=== PATIENT | male | born 2000 | race Two or more races ===

== ENCOUNTER 2021-10-09 19:25 | Inpatient (IN) ==
[2021-10-09] MEDS ORDERED: SODIUM CHLORIDE 0.9% 1000ML 1,000 ML IV ONE (19:39)
--- NOTE | 2021-10-09 19:43 | Emergency Department Note ---
Impression & Plan Suicide attempt by drug overdose, Depression ED Provider Note Name: BRITTNEE MESSINA Age: 21 Sex: M Arrives Via: Ambulance Informant: Patient, EMS ED Provider: Freddie Larose MD Chief Complaint: Overdose Impression: As Per Impressions above Medical Decision Makin-year-old male with a history of anxiety/depression, borderline personality disorder and ADD arrives for evaluation following a medication overdose. About an hour prior to arrival patient reportedly took 20 to 30 tablets of his Paxil. He also admits that he had taken some NyQuil as well. Patient is awake alert oriented he has no symptoms at this time. His EKG is unremarkable without a QRS or QTC elevation. His laboratory work-up reveals a detectable amount of Tylenol and given his history I did feel it was necessary to repeat this Tylenol at 4 hours from last ingestion. Repeat Tylenol at 4 hrs post ingestion is 50, which is within nomogram for clearance. He was monitored for multiple hours and in no distress and without issue. I did review the case with poison control who advised 6-hour observation prior to medical clearance. Vitals throughout are stable patient is in no distress. Prior Medical Record and Triage/Nursing Notes reviewed by Me Additional history obtained from chart Differentials:Mood disorder, infection, hypoglycemia, electrolyte abnormalities, cardiac sources, intracerebral event, toxicologic, trauma, neurologic, as well as other pathologies. Vital Signs: reviewed and remarkable for no significant abnormalities Interventions: Nss bolus 1 L IV Labs:Reviewed and remarkable for Tylenol 28 EKG:Per My Interpretation: Indication Overdose: NSR 100 bpm, qtc 430, QRS 88. No Ectopy. No Ischemia. No previous for comparison Cardiac/Tele Monitoring: Cardiac Monitoring: An Order was placed for continuous cardiac monitoring. The monitor shows a rate of 90 with a normal sinus rhythm. Consults:. Poison control advised 6-hour monitoring Plan: Disposition: Signed out to Dr. Gant pending placement Condition: Good History of Present Illness: 21-year-old male arrives for evaluation following a suicide attempt. Patient notes he has been feeling sad and depressed recently. He took 20 tablets of his 30 mg paroxetine roughly 1 hour prior to arrival (6:30 PM). Patient denies other ingestions. Denies other attempts to harm himself. He does have a history of depression and does not have previous mental health hospitalization. He denies any current complaints. He denies any chest pain, shortness of breath, palpitation, nausea, vomiting, headache, lightheadedness or other concerning signs or symptoms. He took no other medications this afternoon. He has no hallucinations. He denies any thoughts of harm to others. Denies any medical complaints at this time. ROS: See above HPI for pertinent positives & negatives. A total of 10 systems reviewed and were otherwise negative. Past Medical History:Anxiety/depression, ADD, Borderline Past Surgical History:None Family History:Denies family history Social History:[employer] student, daily vapor, no drug use Home Medications:Adderall, hydroxyzine, paroxetine Allergies:Amoxicillin/penicillins Vitals:Blood Pressure: 126/66, Pulse 91, RR 17, T 37.2C, O2 97% on RA Physical Exam: GENERAL: Patient is sad appearing and in minimal distress. EYES: No scleral icterus, unremarkable pupils. ENT: Mucous membranes moist, no nasal congestion. NECK: No masses appreciated, nomeningismus, trachea is midline. RESPIRATORY: No dyspnea. Clear to auscultation and equal bilaterally. No wheeze, no rhonchi. CARDIOVASCULAR: Regular rate and rhythm.No murmurs, rubs, gallops appreciated. GASTROINTESTINAL: Abdomen soft, non-tender, no peritonitis.Bowel sounds positive.No masses appreciated. BACK: No midline tenderness, no CVA tenderness EXTREMITIES: Normal motion all extremities, no cyanosis, no edema. NEUROLOGIC: Alert and oriented, no acute motor or sensory deficits, no focal weakness, cranial nerves grossly intact. SKIN: No rash, no jaundice, no diaphoresis. PSYCH: sad/depressed, admits suicidal ideation with attempt GCS: 15 ED Course: Times/Reassessments: Patient stable no distress stating he is feeling well. Repeat Tylenol unremarkable. Observation note: Indication: Medicatio overdose monitoring Initial Evaluation: 7:30pm on 10/09/21 Observation was necessary in order to avoid hospitalization for medical clearance post ingestion. PMH, PSH, Family History, Social history as above. See Dr Gant's note for time of clearance. Freddie Larose MD Past Med/Surg History Social History Smoking Status: Never smoker Tobacco Type: E-cigarettes / Vaping Preferred Language: German Feels Safe at Home: Yes Allergies Allergies Allergy/AdvReac Type Severity Reaction Status Date / Time amoxicillin Allergy annaphylaxis, Verified 10/09/21 20:03 hives Penicillins Allergy Anaphylaxis Verified 10/09/21 20:03 Home Meds Home Medications Medication Instructions Recorded Confirmed paroxetine HCl 30 mg tablet 30 mg PO HS 02/02/21 10/09/21 dextroamphetamine-amphetamine 10 10 mg PO .AFTERNOON PRN 10/09/21 10/09/21 mg tablet innattention dextroamphetamine-amphetamine ER 30 mg PO DAILY 10/09/21 10/09/21 30 mg 24hr capsule,extend release paroxetine HCl 10 mg tablet 10 mg PO HS 10/09/21 10/09/21 Results & Data (ED) Vital Signs Vital Signs - 24 hr 10/09/21 19:45 10/09/21 20:21 10/09/21 20:32 Temperature 37.2 C Temperature Source Oral Pulse Rate 118 H Pulse Rate [Apical] 102 H 95 H Pulse Rate from SpO2 Sensor Respiratory Rate 16 20 18 Respiratory Effort / Characteristics Non-Labored Spontaneous Non-Labored Spontaneous Non-Labored Spontaneous Respiratory Depth Normal Normal Normal Blood Pressure 170/108 H Blood Pressure [Left Arm] 150/93 H 150/102 H Blood Pressure Mean 128 Blood Pressure Mean [Left Arm] 112 118 Pulse Oximetry 96 98 98 Oxygen Delivery Method Room Air Room Air Room Air Sepsis Recent Fever Within 48 Hours No Sepsis New/Unexplained Change in Mental Status N/A Sepsis Action Taken by Nursing No Action Required 10/09/21 20:38 10/09/21 21:00 10/09/21 21:30 Temperature Temperature Source Pulse Rate 97 H 102 H 92 H Pulse Rate [Apical] Pulse Rate from SpO2 Sensor 95 H 100 H 93 H Respiratory Rate 17 15 16 Respiratory Effort / Characteristics Respiratory Depth Blood Pressure 112/85 145/90 H Blood Pressure [Left Arm] Blood Pressure Mean 94 108 Blood Pressure Mean [Left Arm] Pulse Oximetry 98 100 98 Oxygen Delivery Method Sepsis Recent Fever Within 48 Hours Sepsis New/Unexplained Change in Mental Status Sepsis Action Taken by Nursing 10/09/21 22:00 10/09/21 22:30 10/09/21 23:00 Temperature Temperature Source Pulse Rate 91 H 103 H 87 Pulse Rate [Apical] Pulse Rate from SpO2 Sensor 91 H 104 H 87 Respiratory Rate 17 14 17 Respiratory Effort / Characteristics Respiratory Depth Blood Pressure 126/66 123/76 134/87 Blood Pressure [Left Arm] Blood Pressure Mean 86 91 102 Blood Pressure Mean [Left Arm] Pulse Oximetry 97 97 97 Oxygen Delivery Method Sepsis Recent Fever Within 48 Hours Sepsis New/Unexplained Change in Mental Status Sepsis Action Taken by Nursing Laboratory Data Result diagrams: 10/09/21 19:42 10/09/21 19:42 Lab Results 10/09/21 10/09/21 10/09/21 Range/Units 19:42 19:42 19:42 WBC 8.66 (4.8-10.8) K/ul RBC 6.01 (4.63-6.08) M/uL Hgb 15.8 (14.0-18.0) g/dl Hct 47.4 (40.1-51.0) % MCV 78.9 L (80.0-100.0) fL MCH 26.3 (25.0-34.0) pg MCHC 33.3 (32.0-36.0) g/dL RDW Std Deviation 36.4 (36.4-46.3) fL RDW Coeff of Cheikh 12.8 (11.5-14.5) % Plt Count 280 (130-400) K/uL MPV 9.0 L (9.4-12.4) fL Immature Gran % (Auto) 0.5 % Neut % (Auto) 70.4 % Lymph % (Auto) 21.0 % Callahan % (Auto) 7.5 % Eos % (Auto) 0.3 % Baso % (Auto) 0.3 % Neut # (Auto) 6.09 (1.4-6.5) K/uL Lymph # (Auto) 1.82 (1.2-3.4) K/uL Callahan # (Auto) 0.65 (0.24-0.82) K/uL Eos # (Auto) 0.03 (0-0.50) K/uL Baso # (Auto) 0.03 (0-0.2) K/uL Immature Gran # (Auto) 0.04 H (0.00-0.02) K/uL Sodium 135 L (136-145) mmol/L Potassium 3.7 (3.5-5.1) mmol/L Chloride 101 (98-107) mmol/L Carbon Dioxide 24 (21-32) mmol/L Anion Gap 10 (3-11) BUN 15 (6-23) mg/dl Creatinine 1.02 (0.6-1.4) mg/dl Est Cr Clr Drug Dosing 102.7 ml/min Est GFR ( Amer) 121.2 ml/min Est GFR (Non-Af Amer) 104.6 ml/min BUN/Creatinine Ratio 14.7 (10-20) Glucose 133 H (70-99(Fasting)) mg/dl Calcium 9.5 (8.5-10.1) mg/dl Total Bilirubin 0.3 (0.2-1.0) mg/dl AST 19 (13-39) U/L ALT 16 (7-52) U/L Alkaline Phosphatase 66 (34-104) U/L Total Protein 8.0 (6.0-8.3) gm/dl Albumin 4.9 (3.4-5.0) gm/dl Globulin 3.1 (2.5-4.0) gm/dl Albumin/Globulin Ratio 1.6 (0.9-2) TSH 3.247 (0.300-4.500) uIu/ml Urine Color Urine Appearance Urine pH Ur Specific Terry Urine Protein Urine Glucose (UA) Urine Ketones Urine Blood Urine Nitrite Urine Bilirubin Urine Urobilinogen Ur Leukocyte Esterase Urine WBC (Auto) Urine RBC (Auto) U Hyaline Cast (Auto) U Epithel Cells (Auto) Urine Bacteria (Auto) Ur Renal Epithelial Cell Urine Crystals Calcium Oxalate Crystal Uric Acid Crystals Triple Phos Crystals Other Crystals Amorphous Sediment Granular Casts Waxy Casts RBC Casts WBC Casts Other Casts Urine Mucus Urine Other Urine Trichomonas Urine Yeast Urine Sperm Ur Oval Fat Bodies Salicylates (3.0-30) mg/dl Urine Opiates Screen (Neg) Ur Methadone, Qual (Neg) Acetaminophen (10-30) ug/ml Urine Barbiturates (Neg) Ur Phencyclidine (PCP) (Neg) U Amphetamin/Meth Scrn (Neg) MDMA (Ecstasy) Screen (Neg) U Benzodiazepines Scrn (Neg) Ur Cocaine Metabolite (Neg) U Marijuana (THC) Screen (Neg) Ethyl Alcohol mg/dL (<10.0) mg/dl SARS-CoV-2, RNA, NAAT (NEGATIVE) 10/09/21 10/09/21 10/09/21 Range/Units 19:42 19:42 19:42 WBC (4.8-10.8) K/ul RBC (4.63-6.08) M/uL Hgb (14.0-18.0) g/dl Hct (40.1-51.0) % MCV (80.0-100.0) fL MCH (25.0-34.0) pg MCHC (32.0-36.0) g/dL RDW Std Deviation (36.4-46.3) fL RDW Coeff of Cheikh (11.5-14.5) % Plt Count (130-400) K/uL MPV (9.4-12.4) fL Immature Gran % (Auto) % Neut % (Auto) % Lymph % (Auto) % Callahan % (Auto) % Eos % (Auto) % Baso % (Auto) % Neut # (Auto) (1.4-6.5) K/uL Lymph # (Auto) (1.2-3.4) K/uL Callahan # (Auto) (0.24-0.82) K/uL Eos # (Auto) (0-0.50) K/uL Baso # (Auto) (0-0.2) K/uL Immature Gran # (Auto) (0.00-0.02) K/uL Sodium (136-145) mmol/L Potassium (3.5-5.1) mmol/L Chloride (98-107) mmol/L Carbon Dioxide (21-32) mmol/L Anion Gap (3-11) BUN (6-23) mg/dl Creatinine (0.6-1.4) mg/dl Est Cr Clr Drug Dosing ml/min Est GFR ( Amer) ml/min Est GFR (Non-Af Amer) ml/min BUN/Creatinine Ratio (10-20) Glucose (70-99(Fasting)) mg/dl Calcium (8.5-10.1) mg/dl Total Bilirubin (0.2-1.0) mg/dl AST (13-39) U/L ALT (7-52) U/L Alkaline Phosphatase (34-104) U/L Total Protein (6.0-8.3) gm/dl Albumin (3.4-5.0) gm/dl Globulin (2.5-4.0) gm/dl Albumin/Globulin Ratio (0.9-2) TSH (0.300-4.500) uIu/ml Urine Color Urine Appearance Urine pH Ur Specific Terry Urine Protein Urine Glucose (UA) Urine Ketones Urine Blood Urine Nitrite Urine Bilirubin Urine Urobilinogen Ur Leukocyte Esterase Urine WBC (Auto) Urine RBC (Auto) U Hyaline Cast (Auto) U Epithel Cells (Auto) Urine Bacteria (Auto) Ur Renal Epithelial Cell Urine Crystals Calcium Oxalate Crystal Uric Acid Crystals Triple Phos Crystals Other Crystals Amorphous Sediment Granular Casts Waxy Casts RBC Casts WBC Casts Other Casts Urine Mucus Urine Other Urine Trichomonas Urine Yeast Urine Sperm Ur Oval Fat Bodies Salicylates < 3.0 L (3.0-30) mg/dl Urine Opiates Screen (Neg) Ur Methadone, Qual (Neg) Acetaminophen 28 (10-30) ug/ml Urine Barbiturates (Neg) Ur Phencyclidine (PCP) (Neg) U Amphetamin/Meth Scrn (Neg) MDMA (Ecstasy) Screen (Neg) U Benzodiazepines Scrn (Neg) Ur Cocaine Metabolite (Neg) U Marijuana (THC) Screen (Neg) Ethyl Alcohol mg/dL < 10.0 (<10.0) mg/dl SARS-CoV-2, RNA, NAAT NEGATIVE (NEGATIVE) 10/09/21 10/09/21 10/09/21 Range/Units 22:08 Unknown Unknown WBC (4.8-10.8) K/ul RBC (4.63-6.08) M/uL Hgb (14.0-18.0) g/dl Hct (40.1-51.0) % MCV (80.0-100.0) fL MCH (25.0-34.0) pg MCHC (32.0-36.0) g/dL RDW Std Deviation (36.4-46.3) fL RDW Coeff of Cheikh (11.5-14.5) % Plt Count (130-400) K/uL MPV (9.4-12.4) fL Immature Gran % (Auto) % Neut % (Auto) % Lymph % (Auto) % Callahan % (Auto) % Eos % (Auto) % Baso % (Auto) % Neut # (Auto) (1.4-6.5) K/uL Lymph # (Auto) (1.2-3.4) K/uL Callahan # (Auto) (0.24-0.82) K/uL Eos # (Auto) (0-0.50) K/uL Baso # (Auto) (0-0.2) K/uL Immature Gran # (Auto) (0.00-0.02) K/uL Sodium (136-145) mmol/L Potassium (3.5-5.1) mmol/L Chloride (98-107) mmol/L Carbon Dioxide (21-32) mmol/L Anion Gap (3-11) BUN (6-23) mg/dl Creatinine (0.6-1.4) mg/dl Est Cr Clr Drug Dosing ml/min Est GFR ( Amer) ml/min Est GFR (Non-Af Amer) ml/min BUN/Creatinine Ratio (10-20) Glucose (70-99(Fasting)) mg/dl Calcium (8.5-10.1) mg/dl Total Bilirubin (0.2-1.0) mg/dl AST (13-39) U/L ALT (7-52) U/L Alkaline Phosphatase (34-104) U/L Total Protein (6.0-8.3) gm/dl Albumin (3.4-5.0) gm/dl Globulin (2.5-4.0) gm/dl Albumin/Globulin Ratio (0.9-2) TSH (0.300-4.500) uIu/ml Urine Color Cancelled Urine Appearance Cancelled Urine pH Cancelled Ur Specific Terry Cancelled Urine Protein Cancelled Urine Glucose (UA) Cancelled Urine Ketones Cancelled Urine Blood Cancelled Urine Nitrite Cancelled Urine Bilirubin Cancelled Urine Urobilinogen Cancelled Ur Leukocyte Esterase Cancelled Urine WBC (Auto) Cancelled Urine RBC (Auto) Cancelled U Hyaline Cast (Auto) Cancelled U Epithel Cells (Auto) Cancelled Urine Bacteria (Auto) Cancelled Ur Renal Epithelial Cell Cancelled Urine Crystals Cancelled Calcium Oxalate Crystal Cancelled Uric Acid Crystals Cancelled Triple Phos Crystals Cancelled Other Crystals Cancelled Amorphous Sediment Cancelled Granular Casts Cancelled Waxy Casts Cancelled RBC Casts Cancelled WBC Casts Cancelled Other Casts Cancelled Urine Mucus Cancelled Urine Other Cancelled Urine Trichomonas Cancelled Urine Yeast Cancelled Urine Sperm Cancelled Ur Oval Fat Bodies Cancelled Salicylates (3.0-30) mg/dl Urine Opiates Screen Neg (Neg) Ur Methadone, Qual Neg (Neg) Acetaminophen 51 H (10-30) ug/ml Urine Barbiturates Neg (Neg) Ur Phencyclidine (PCP) Neg (Neg) U Amphetamin/Meth Scrn Pos H (Neg) MDMA (Ecstasy) Screen Neg (Neg) U Benzodiazepines Scrn Neg (Neg) Ur Cocaine Metabolite Neg (Neg) U Marijuana (THC) Screen Pos H (Neg) Ethyl Alcohol mg/dL (<10.0) mg/dl SARS-CoV-2, RNA, NAAT (NEGATIVE) 10/09/21 Range/Units Unknown WBC (4.8-10.8) K/ul RBC (4.63-6.08) M/uL Hgb (14.0-18.0) g/dl Hct (40.1-51.0) % MCV (80.0-100.0) fL MCH (25.0-34.0) pg MCHC (32.0-36.0) g/dL RDW Std Deviation (36.4-46.3) fL RDW Coeff of Cheikh (11.5-14.5) % Plt Count (130-400) K/uL MPV (9.4-12.4) fL Immature Gran % (Auto) % Neut % (Auto) % Lymph % (Auto) % Callahan % (Auto) % Eos % (Auto) % Baso % (Auto) % Neut # (Auto) (1.4-6.5) K/uL Lymph # (Auto) (1.2-3.4) K/uL Callahan # (Auto) (0.24-0.82) K/uL Eos # (Auto) (0-0.50) K/uL Baso # (Auto) (0-0.2) K/uL Immature Gran # (Auto) (0.00-0.02) K/uL Sodium (136-145) mmol/L Potassium (3.5-5.1) mmol/L Chloride (98-107) mmol/L Carbon Dioxide (21-32) mmol/L Anion Gap (3-11) BUN (6-23) mg/dl Creatinine (0.6-1.4) mg/dl Est Cr Clr Drug Dosing ml/min Est GFR ( Amer) ml/min Est GFR (Non-Af Amer) ml/min BUN/Creatinine Ratio (10-20) Glucose (70-99(Fasting)) mg/dl Calcium (8.5-10.1) mg/dl Total Bilirubin (0.2-1.0) mg/dl AST (13-39) U/L ALT (7-52) U/L Alkaline Phosphatase (34-104) U/L Total Protein (6.0-8.3) gm/dl Albumin (3.4-5.0) gm/dl Globulin (2.5-4.0) gm/dl Albumin/Globulin Ratio (0.9-2) TSH (0.300-4.500) uIu/ml Urine Color Yellow Urine Appearance Clear Urine pH 6.5 Ur Specific Terry 1.032 H Urine Protein Negative Urine Glucose (UA) Negative Urine Ketones Trace H Urine Blood Negative Urine Nitrite Negative Urine Bilirubin Negative Urine Urobilinogen Negative Ur Leukocyte Esterase Negative Urine WBC (Auto) Urine RBC (Auto) U Hyaline Cast (Auto) U Epithel Cells (Auto) Urine Bacteria (Auto) Ur Renal Epithelial Cell Urine Crystals Calcium Oxalate Crystal Uric Acid Crystals Triple Phos Crystals Other Crystals Amorphous Sediment Granular Casts Waxy Casts RBC Casts WBC Casts Other Casts Urine Mucus Urine Other Urine Trichomonas Urine Yeast Urine Sperm Ur Oval Fat Bodies Salicylates (3.0-30) mg/dl Urine Opiates Screen (Neg) Ur Methadone, Qual (Neg) Acetaminophen (10-30) ug/ml Urine Barbiturates (Neg) Ur Phencyclidine (PCP) (Neg) U Amphetamin/Meth Scrn (Neg) MDMA (Ecstasy) Screen (Neg) U Benzodiazepines Scrn (Neg) Ur Cocaine Metabolite (Neg) U Marijuana (THC) Screen (Neg) Ethyl Alcohol mg/dL (<10.0) mg/dl SARS-CoV-2, RNA, NAAT (NEGATIVE) Administered Medications Discontinued Medications Sodium Chloride (Nss 1000ml) 1,000 mls @ 999 mls/hr IV .[id number] ONE Stop: 10/09/21 20:39 Last Admin: 10/09/21 20:20 Dose: 999 mls/hr Documented By: ARNOLD Discharge Plan Visit Data Chief Complaint: Overdose (Intentional) Stated Complaint: overdose ED Provider: Freddie Larose Discharge Problem: Suicide attempt by drug overdose, Depression Forms Stand Alone Forms: My [facility], Suicide Prevention Resources Prescriptions Prescriptions: No Action paroxetine HCl 30 mg tablet 30 mg PO HS paroxetine HCl 10 mg tablet 10 mg PO HS dextroamphetamine-amphetamine 30 mg capsule,extended release 24hr 30 mg PO DAILY dextroamphetamine-amphetamine 10 mg tablet 10 mg PO .AFTERNOON PRN (Reason: innattention) Referrals [facility]: [facility] [Primary Care Provider[facility] - : Depression Qualifiers: Depression Type: major depressive disorder Major depression recurrence: recurrent Active/Remission status: currently active Major depression episode severity: severe Psychotic features: without psychotic features Qualified Code(s): F33.2 - Major depressive disorder, recurrent severe without psychotic features
[2021-10-09 20:10] LABS: Basophils # (auto) 0.03 K/uL (0-0.2); Basophils % (auto) 0.3 %; Eosinophils # (auto) 0.03 K/uL (0-0.50); Eosinophils % (auto) 0.3 %; Hematocrit (blood only) 47.4 % (40.1-51.0); Hemoglobin 15.8 g/dl (14.0-18.0); Immature Granulocytes # (auto) 0.04 K/uL (0.00-0.02); Immature Granulocytes % (auto) 0.5 %; Lymphocytes # (auto) 1.82 K/uL (1.2-3.4); Mean Corpuscular Hemoglobin 26.3 pg (25.0-34.0); Mean Corpuscular Hgb Conc 33.3 g/dL (32.0-36.0); Mean Corpuscular Volume 78.9 fL (80.0-100.0); Monocytes # (auto) 0.65 K/uL (0.24-0.82); Monocytes % (auto) 7.5 %; Neutrophils # (auto) 6.09 K/uL (1.4-6.5); Neutrophils % (auto) 70.4 %; Platelet Count 280 K/uL (130-400); RDW Coefficient of Variation 12.8 % (11.5-14.5); RDW Standard Deviation 36.4 fL (36.4-46.3); Red Blood Count 6.01 M/uL (4.63-6.08); White Blood Count 8.66 K/ul (4.8-10.8)
[2021-10-09 20:51] LABS: Acetaminophen 28 ug/ml (10-30); Albumin Globulin Ratio 1.6 (0.9-2); Albumin Level 4.9 gm/dl (3.4-5.0); BUN Creatinine Ratio 14.7 (10-20); Bilirubin,Total 0.3 mg/dl (0.2-1.0); Calcium 9.5 mg/dl (8.5-10.1); Creatinine Clr Calc Pharmacy 102.7 ml/min; Est GFR (African American) 121.2 ml/min; Est GFR (Non-African American) 104.6 ml/min; Globulin 3.1 gm/dl (2.5-4.0); Potassium 3.7 mmol/L (3.5-5.1); Salicylate < 3.0 mg/dl (3.0-30)
[2021-10-09 22:15] LABS: Appearance Urine Clear (Clear); Bilirubin Urine Negative (Negative); Blood Urine Negative (Negative); Color Urine Yellow; Glucose Urine UA Negative (Negative); Ketones Urine Trace (Negative); Leukocyte Esterase Urine Negative (Negative); Nitrite Urine Negative (Negative); Protein Urine Negative (Negative); Specific Gravity Urine 1.032 (1.000-1.030); Urobilinogen Urine Negative (Negative); pH Urine 6.5 (4.5-7.5)
[2021-10-09 22:28] LABS: Amphetamines+Metham, Urine Pos (Neg); Barbiturates, Urine Neg (Neg); Benzodiazepine, Urine Neg (Neg); Cocaine, Urine Neg (Neg); MDMA (Ecstacy), Urine Neg (Neg); Methadone, Urine Neg (Neg); Opiate, Urine Neg (Neg); Phencyclidine, Urine Neg (Neg)
[2021-10-10] MEDS ORDERED: SODIUM CHLORIDE 0.65% NA SOLN 45 ML (OCEAN) PRN (02:31)
[2021-10-10] MEDS ORDERED: BISMUTH SUBSALICYLATE LIQD 236 ML PO PRN (02:31)
[2021-10-10] MEDS ORDERED: MAGNESIUM HYDROXIDE SUSP 30 ML UDC PO PRN (02:31)
[2021-10-10] MEDS ORDERED: hydrOXYzine HCl 25 MG TAB PO PRN (02:31)
[2021-10-10] MEDS ORDERED: ALUMINUM/MAGNESIUM SUSP 30 ML UDC PO PRN (02:31)
[2021-10-10] MEDS ORDERED: ACETAMINOPHEN 325 MG TAB PO PRN (02:31)
--- NOTE | 2021-10-10 07:55 | History & Physical ---
Date of Service October 10, 2021 Impression / Recommendations Impression Braulio is a 21 yo male with a history of issues with "self regulation" seemingly due to reactivity in relationships, perhaps in part to ADHD, but hx of anxiety worsening recently in the context of depression. He seems rather invested in a diagnosis of borderline personality disorder. Reviewed that given his age, etc would likely defer diagnosis as not a life long pattern and hx of complex trauma but certainly a diagnostic consideration. He consistently denies symptoms of eliza or hypomania. He is somewhat restless and talkative on exam today but did not sleep well and is unmedicated for his longstanding ADHD. (1) Suicide attempt by drug overdose: (2) Depression: Active/Remission status: currently active Depression Type: major depressive disorder Major depression episode severity: severe Major depression recurrence: recurrent Psychotic features: without psychotic features Qualified Code(s): F33.2 - Major depressive disorder, recurrent severe without psychotic features (3) Attention deficit disorder of adult with hyperactivity: Plan 10/10/21: The patient was admitted to the [facility] ([facility]) on q15 min checks (behavioral with suicide precautions) for safety. The patient will participate in group, recreational, and milieu therapies and will be offered additional individual and family sessions as clinically appropriate. Risks/benefits/alternatives reviewed re: current medications including but not limited to cardiovascular risks of stimulant restart and FDA black box warnings re: suicidal thoughts with SSRI. 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 He is agreeable to treatment and remaining hospitalized to start Zoloft as was plan of outpatient provider. Care discussed with outpatient prescriber. Inventory Assets Strengths: bright, well spoken Needs: coping skills, improved impulse control Suicide Risk Level Suicide Risk Level: Moderate (q15 min suicide checks) (currently denies SI, states attempt was impulsive, contracts to go to staff) Risk Factors Assessment Male: Yes Do You Have Access To A Gun?: No Mental Health Diagnoses: Yes Previous Attempt: No Family History of Suicide: No Previous Psychiatric Hospitalization: Yes Protective Factors Assessment Employed: No Stable Relationships: No Supportive Family: No Psychiatric History Identifying Data BRAULIO MESSINA is a 21-year-old M, [employer] student from [place], and was admitted on 10/10/21 02:31 on a 201 voluntary commitment s/p suicide attempt. He was reportedly brought to the ED by police on a Box B warrant after calling crisis hotline. Chief Complaint "If I really wanted to hurt myself I would have researched it better". History of Present Illness Braulio reports that he is doing well in many areas but struggles with self- regulation, particularly with regards to all or nothing thinking and relationships. He reports feeling like he should "go to the [place]" on 10/05/21 but deciding to wait and had a plan to cross taper his medication from Paxil to Zoloft with his outpatient prescriber Sunita Gutierrez PA-C at [facility]. He stat es he impulsively took approximately 20 of his Paxil 30 mg with some Nyquil and had written a suicide note (though maintains impulsive). He chronically doesn't feel like he connects with people or is "super social" but denies eliza. He has been going to the bars less recently which has been helpful for his mood and he also feels that delta 8 has been helpful for anxiety (reviewed risks, particular ly in combination with psychiatric medications). He notes >2 week issues ("maybe since May") with appetite and DFA, decreased energy, anhedonia, low motivation (though semester ended well). He feels that Adderall has only positive impact on his mood as if doesn't take it will stay in bed for 2-3 days at a time. 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 He is active in student government on campus. He identifies many friendships but is not in a relationship currently and doesn't seem particularly close with his 4 roommates. He is estranged from his family, having lived with grandparents or friends families since middle school. Past Psychiatric History Previous Psych History: ADHD dx years ago, stable on ADderall XR, no known misuse or diversion Current Psychiatric Diagnosis: MDD, BPD Outpatient Services: [facility] Sunita and good relationship with therapist at [facility] that includes a DBT component thought would like to be seen more frequently Previous Psych Admissions: middle school ?[facility] following argument with mother, denies related to SI Do You Have Access To A Gun?: No History of Previous Suicide Attempt: No Past Medication Trials: Paxil, Adderall XR and Adderall, Zoloft to start, records pending. Allergies Allergy/AdvReac Type Severity Reaction Status Date / Time amoxicillin Allergy annaphylaxis, Verified 10/09/21 20:03 hives Penicillins Allergy Anaphylaxis Verified 10/09/21 20:03 Home Medications Medication Instructions Recorded Confirmed Type paroxetine HCl 30 mg tablet 30 mg PO HS 02/02/21 10/09/21 History dextroamphetamine-amphetamine 10 10 mg PO .AFTERNOON PRN 10/09/21 10/09/21 History mg tablet innattention dextroamphetamine-amphetamine ER 30 mg PO DAILY 10/09/21 10/09/21 History 30 mg 24hr capsule,extend release paroxetine HCl 10 mg tablet 10 mg PO HS 10/09/21 10/09/21 History Family History Family History of: Depression (maybe bipolar or schizophrenia in an extended maternal relative) and Alcoholism/Drug Abuse Alcohol History Hx of Alcohol Use Over the Past 12 Months: Yes ("some, not every day") Smoking Use Have You Smoked or Used Tobacco Products in the Last 30 Days: Refused to Answer tobacco type: e-cigarettes Smoking Status: Smoker, status unknown Smoking packs per day: 0 Substance History Hx of Prescription Med Misuse Over the Past 12 Months: Yes (OD) Hx of Over the Counter Med Misuse Over the Past 12 Months: No Hx of Inhalent Misuse Over the Past 12 Months: No Hx of Organic Substance Use Over the Past 12 Months: Yes (+THC) Hx of Illegal Substances/Street Drug Use Over Past 12 Months: No Problems as a Result of Past Substance Use: None Identified Personal History Living Arrangements: Apartment Childhood: [place]; recently found out he has a 1/2 sib Highest Grade Completed: Some College (will be a senior in the fall majoring in [employer]) Employment Status: Student (epidemiology internship) Marital Status: Single Number Of Children: 0 Beliefs That Will Affect Care: None Current Legal Problems: No Hx Traumatic Life Events: Yes (reports a rather tumultuous childhood but stops short of endorsing abuse) Patient History Medical History Hyperhidrosis No cardiac disease No history of seizure disorder Social History Smoking Status: Smoker, status unknown Tobacco Type: E-cigarettes / Vaping Preferred Language: French Communication Ability: Effective Copy Lathe Operator Required: No Beliefs That Will Affect Care: None Feels Safe at Home: Declines to Answer Assistive Devices: None Review of Systems Review of Systems: All systems reviewed & are unremarkable except as noted in HPI & below Physical Exam Psychiatric: Orientation: alert and oriented x 3 Apperance: appropriately dressed and appropriately groomed Eye Contact: good eye contact Motor Behavior: no abnormal motor movements Speech: normal rate/rhythm/volume of speech Affect: + depressed affect Mood: + depressed mood Thought Process: goal directed thought process Thought Content: reality based without delusions Suicidal Thoughts: denies suicidal thoughts Homicidal Thoughts: denies homicidal thoughts Hallucinations: no auditory hallucinations and no visual hallucinations Cognition: attention grossly intact and language mac sly intact Estimated Intelligence: consistent with education level Insight: + limited insight Judgement: + limited judgement Vital Signs (Past 24 Hours): Last Vital Signs Temp 37.2 C 10/09/21 19:45 Pulse 78 10/10/21 04:02 Resp 18 10/10/21 04:02 BP 146/98 H 10/10/21 00:23 Pulse Ox 97 10/10/21 04:02 O2 Del Method 10/10/21 04:02 Exam Statement: A physical exam was performed in the ED by Dr. Larose for the purposes of medical clearance. I accept that physical as correct and adequate for the purposes of the inpatient physical exam. Results & Data ([facility]) Laboratory Results Laboratory Results - last 24 hr 10/09/21 10/09/21 10/09/21 19:42 19:42 19:42 WBC 8.66 RBC 6.01 Hgb 15.8 Hct 47.4 MCV 78.9 L MCH 26.3 MCHC 33.3 RDW Std Deviation 36.4 RDW Coeff of Cheikh 12.8 Plt Count 280 MPV 9.0 L Immature Gran % (Auto) 0.5 Neut % (Auto) 70.4 Lymph % (Auto) 21.0 Holt % (Auto) 7.5 Eos % (Auto) 0.3 Baso % (Auto) 0.3 Neut # (Auto) 6.09 Lymph # (Auto) 1.82 Holt # (Auto) 0.65 Eos # (Auto) 0.03 Baso # (Auto) 0.03 Immature Gran # (Auto) 0.04 H Sodium 135 L Potassium 3.7 Chloride 101 Carbon Dioxide 24 Anion Gap 10 BUN 15 Creatinine 1.02 Est Cr Clr Drug Dosing 102.7 Est GFR ( Amer) 121.2 Est GFR (Non-Af Amer) 104.6 BUN/Creatinine Ratio 14.7 Glucose 133 H Calcium 9.5 Total Bilirubin 0.3 AST 19 ALT 16 Alkaline Phosphatase 66 Total Protein 8.0 Albumin 4.9 Globulin 3.1 Albumin/Globulin Ratio 1.6 TSH 3.247 Urine Color Urine Appearance Urine pH Ur Specific Porter Urine Protein Urine Glucose (UA) Urine Ketones Urine Blood Urine Nitrite Urine Bilirubin Urine Urobilinogen Ur Leukocyte Esterase Urine WBC (Auto) Urine RBC (Auto) U Hyaline Cast (Auto) U Epithel Cells (Auto) Urine Bacteria (Auto) Ur Renal Epithelial Cell Urine Crystals Calcium Oxalate Crystal Uric Acid Crystals Triple Phos Crystals Other Crystals Amorphous Sediment Granular Casts Waxy Casts RBC Casts WBC Casts Other Casts Urine Mucus Urine Other Urine Trichomonas Urine Yeast Urine Sperm Ur Oval Fat Bodies Salicylates Urine Opiates Screen Ur Methadone, Qual Acetaminophen Urine Barbiturates Ur Phencyclidine (PCP) U Amphetamines Confirm U Amphetamin/Meth Scrn U Methamphetamin Confrm MDMA (Ecstasy) Screen U Benzodiazepines Scrn Ur Cocaine Metabolite U Marijuana (THC) Screen U Marijuana THC Carboxy Drug Screen Comment Ethyl Alcohol mg/dL SARS-CoV-2, RNA, NAAT 10/09/21 10/09/21 10/09/21 19:42 19:42 19:42 WBC RBC Hgb Hct MCV MCH MCHC RDW Std Deviation RDW Coeff of Cheikh Plt Count MPV Immature Gran % (Auto) Neut % (Auto) Lymph % (Auto) Holt % (Auto) Eos % (Auto) Baso % (Auto) Neut # (Auto) Lymph # (Auto) Holt # (Auto) Eos # (Auto) Baso # (Auto) Immature Gran # (Auto) Sodium Potassium Chloride Carbon Dioxide Anion Gap BUN Creatinine Est Cr Clr Drug Dosing Est GFR ( Amer) Est GFR (Non-Af Amer) BUN/Creatinine Ratio Glucose Calcium Total Bilirubin AST ALT Alkaline Phosphatase Total Protein Albumin Globulin Albumin/Globulin Ratio TSH Urine Color Urine Appearance Urine pH Ur Specific Porter Urine Protein Urine Glucose (UA) Urine Ketones Urine Blood Urine Nitrite Urine Bilirubin Urine Urobilinogen Ur Leukocyte Esterase Urine WBC (Auto) Urine RBC (Auto) U Hyaline Cast (Auto) U Epithel Cells (Auto) Urine Bacteria (Auto) Ur Renal Epithelial Cell Urine Crystals Calcium Oxalate Crystal Uric Acid Crystals Triple Phos Crystals Other Crystals Amorphous Sediment Granular Casts Waxy Casts RBC Casts WBC Casts Other Casts Urine Mucus Urine Other Urine Trichomonas Urine Yeast Urine Sperm Ur Oval Fat Bodies Salicylates < 3.0 L Urine Opiates Screen Ur Methadone, Qual Acetaminophen 28 Urine Barbiturates Ur Phencyclidine (PCP) U Amphetamines Confirm U Amphetamin/Meth Scrn U Methamphetamin Confrm MDMA (Ecstasy) Screen U Benzodiazepines Scrn Ur Cocaine Metabolite U Marijuana (THC) Screen U Marijuana THC Carboxy Drug Screen Comment Ethyl Alcohol mg/dL < 10.0 SARS-CoV-2, RNA, NAAT NEGATIVE 10/09/21 10/09/21 10/09/21 22:08 Unknown Unknown WBC RBC Hgb Hct MCV MCH MCHC RDW Std Deviation RDW Coeff of Cheikh Plt Count MPV Immature Gran % (Auto) Neut % (Auto) Lymph % (Auto) Holt % (Auto) Eos % (Auto) Baso % (Auto) Neut # (Auto) Lymph # (Auto) Holt # (Auto) Eos # (Auto) Baso # (Auto) Immature Gran # (Auto) Sodium Potassium Chloride Carbon Dioxide Anion Gap BUN Creatinine Est Cr Clr Drug Dosing Est GFR ( Amer) Est GFR (Non-Af Amer) BUN/Creatinine Ratio Glucose Calcium Total Bilirubin AST ALT Alkaline Phosphatase Total Protein Albumin Globulin Albumin/Globulin Ratio TSH Urine Color Cancelled Urine Appearance Cancelled Urine pH Cancelled Ur Specific Porter Cancelled Urine Protein Cancelled Urine Glucose (UA) Cancelled Urine Ketones Cancelled Urine Blood Cancelled Urine Nitrite Cancelled Urine Bilirubin Cancelled Urine Urobilinogen Cancelled Ur Leukocyte Esterase Cancelled Urine WBC (Auto) Cancelled Urine RBC (Auto) Cancelled U Hyaline Cast (Auto) Cancelled U Epithel Cells (Auto) Cancelled Urine Bacteria (Auto) Cancelled Ur Renal Epithelial Cell Cancelled Urine Crystals Cancelled Calcium Oxalate Crystal Cancelled Uric Acid Crystals Cancelled Triple Phos Crystals Cancelled Other Crystals Cancelled Amorphous Sediment Cancelled Granular Casts Cancelled Waxy Casts Cancelled RBC Casts Cancelled WBC Casts Cancelled Other Casts Cancelled Urine Mucus Cancelled Urine Other Cancelled Urine Trichomonas Cancelled Urine Yeast Cancelled Urine Sperm Cancelled Ur Oval Fat Bodies Cancelled Salicylates Urine Opiates Screen Neg Ur Methadone, Qual Neg Acetaminophen 51 H Urine Barbiturates Neg Ur Phencyclidine (PCP) Neg U Amphetamines Confirm U Amphetamin/Meth Scrn Pos H U Methamphetamin Confrm MDMA (Ecstasy) Screen Neg U Benzodiazepines Scrn Neg Ur Cocaine Metabolite Neg U Marijuana (THC) Screen Pos H U Marijuana THC Carboxy Drug Screen Comment Ethyl Alcohol mg/dL SARS-CoV-2, RNA, NAAT 10/09/21 10/09/21 Unknown Unknown WBC RBC Hgb Hct MCV MCH MCHC RDW Std Deviation RDW Coeff of Cheikh Plt Count MPV Immature Gran % (Auto) Neut % (Auto) Lymph % (Auto) Holt % (Auto) Eos % (Auto) Baso % (Auto) Neut # (Auto) Lymph # (Auto) Holt # (Auto) Eos # (Auto) Baso # (Auto) Immature Gran # (Auto) Sodium Potassium Chloride Carbon Dioxide Anion Gap BUN Creatinine Est Cr Clr Drug Dosing Est GFR ( Amer) Est GFR (Non-Af Amer) BUN/Creatinine Ratio Glucose Calcium Total Bilirubin AST ALT Alkaline Phosphatase Total Protein Albumin Globulin Albumin/Globulin Ratio TSH Urine Color Yellow Urine Appearance Clear Urine pH 6.5 Ur Specific Porter 1.032 H Urine Protein Negative Urine Glucose (UA) Negative Urine Ketones Trace H Urine Blood Negative Urine Nitrite Negative Urine Bilirubin Negative Urine Urobilinogen Negative Ur Leukocyte Esterase Negative Urine WBC (Auto) Urine RBC (Auto) U Hyaline Cast (Auto) U Epithel Cells (Auto) Urine Bacteria (Auto) Ur Renal Epithelial Cell Urine Crystals Calcium Oxalate Crystal Uric Acid Crystals Triple Phos Crystals Other Crystals Amorphous Sediment Granular Casts Waxy Casts RBC Casts WBC Casts Other Casts Urine Mucus Urine Other Urine Trichomonas Urine Yeast Urine Sperm Ur Oval Fat Bodies Salicylates Urine Opiates Screen Ur Methadone, Qual Acetaminophen Urine Barbiturates Ur Phencyclidine (PCP) U Amphetamines Confirm Pending U Amphetamin/Meth Scrn U Methamphetamin Confrm Pending MDMA (Ecstasy) Screen U Benzodiazepines Scrn Ur Cocaine Metabolite U Marijuana (THC) Screen U Marijuana THC Carboxy Pending Drug Screen Comment Pending Ethyl Alcohol mg/dL SARS-CoV-2, RNA, NAAT Diagnostic Findings EKG nl QTc Current Inpatient Medications Current Inpatient Medications: Current Inpatient Medications Acetaminophen (Acetaminophen 325 Mg Tab) 650 mg PO Q4H PRN PRN Reason: Headache or Minor Fever Stop: 11/09/21 02:30 Al Hydrox/Mg Hydrox/Simethicone (Aluminum/Magnesium Susp 30 Ml Udc) 30 ml PO Q4H PRN PRN Reason: GI Upset Stop: 11/09/21 02:30 Bismuth Subsalicylate (Bismuth Subsalicylate Liqd 236 Ml) 15 ml PO PRN PRN PRN Reason: Loose Stool Stop: 11/09/21 02:30 Hydroxyzine HCl (Hydroxyzine Hcl 25 Mg Tab) 50 mg PO HSZ PRN PRN Reason: Insomnia Stop: 11/09/21 02:30 Hydroxyzine HCl (Hydroxyzine Hcl 25 Mg Tab) 25 mg PO Q4H PRN PRN Reason: Anxiety Stop: 11/09/21 02:30 Magnesium Hydroxide (Magnesium Hydroxide Susp 30 Ml Udc) 30 ml PO DAILY PRN PRN Reason: Constipation Stop: 11/09/21 02:30 Sodium Chloride (Sodium Chloride 0.65% Na Soln 45 Ml ([place])) 1 - 2 sprays NA PRN PRN PRN Reason: Nasal Dryness/Congestion Stop: 11/09/21 02:30
[2021-10-10] MEDS ORDERED: AMPHETAMINE ASP/SULF/DEXTRAMPH 10 MG TAB PO STA (14:14)
[2021-10-10] MEDS ORDERED: SERTRALINE HCL 50 MG TABLET PO ONE (14:15)
[2021-10-10] MEDS: hydrOXYzine HCl 25 MG TAB PO PRN (20:33)
--- NOTE | 2021-10-10 21:52 | Electrocardiogram Report ---
Test Reason : Blood Pressure : / mmHG Vent. Rate : 100 BPM Atrial Rate : 100 BPM P-R Int : 124 ms QRS Dur : 088 ms QT Int : 334 ms P-R-T Axes : 065 080 047 degrees QTc Int : 430 ms Normal sinus rhythm Normal ECG No previous ECGs available Confirmed by Maximiliano Baugh ([id number]) on 10/10/2021 9:52:16 PM Referred By: REFERRED SELF Confirmed By:Maximiliano Baugh
[2021-10-11] MEDS: SERTRALINE HCL 50 MG TABLET PO SCH (08:35)
[2021-10-11] MEDS ORDERED: AMPHETAMINE ASP/SULF/DEXTRAMPH ER 20 MG CAP PO SCH (09:00)
--- NOTE | 2021-10-11 11:13 | Psychiatric Progress Note ---
Date of Service October 11, 2021 Impression / Recommendations Impression Braulio is a 21 yo male with a history of issues with "self regulation" seemingly due to reactivity in relationships, perhaps in part to ADHD, but hx of anxiety worsening recently in the context of depression. He seems rather invested in a diagnosis of borderline personality disorder. Reviewed that given his age, etc would likely defer diagnosis as not a life long pattern and hx of complex trauma but certainly a diagnostic consideration. 10/11/21: improving, sweating related to hyperhidrosis and no evidence of serotonin syndrome. 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 Will resume Adderall XR 30 mg tomorrow am. Continue Zoloft 25 mg for now given recent OD of SSRI. Risks/benefits/alternatives reviewed re: glycopyrrolate and will start 1 mg BID today with help from social work to establish with PCP for ongoing care re: this issue. 10/10/21: [facility]) on q15 min checks (behavioral with suicide precautions) for safety. The patient will participate in group, recreational, and milieu therapies and will be offered additional individual and family sessions as clinically appropriate. Risks/benefits/alternatives reviewed re: current medications including but not limited to cardiovascular risks of stimulant restart and FDA black box warnings re: suicidal thoughts with SSRI. 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 He is agreeable to treatment and remaining hospitalized to start Zoloft as was plan of outpatient provider. Care discussed with outpatient prescriber. Inventory Assets Strengths: bright, well spoken Needs: coping skills, improved impulse control Suicide Risk Level Suicide Risk Level: Moderate (q15 min suicide checks) (currently denies SI, states attempt was impulsive, contracts to go to staff) Risk Factors Assessment Male: Yes Do You Have Access To A Gun?: No Mental Health Diagnoses: Yes Previous Attempt: No Family History of Suicide: No Previous Psychiatric Hospitalization: Yes Protective Factors Assessment Employed: No Stable Relationships: No Supportive Family: No Interval History Identifying Information BRAULIO MESSINA is a 21-year-old M, [employer] student from [place], and was admitted on 10/10/21 02:31 on a 201 voluntary commitment s/p suicide attempt. Chief Complaint "I just really need a diagnosis to understand why my relationships are the way they are". Review of Systems Sleep Information Total Hours of Sleep: 7.5 Meal Information Percent Meal Consumed - Breakfast: 90 Percent Meal Consumed - Dinner: 100 Subjective Subjective Patient was seen & assessed and interval progress reviewed with treatment team. Remains very invested in receiving a diagnosis of borderline personality disorder and reviewed traits, age, diagnostic impressions and that receiving same treatment regardless. His outpatient provider is concerned that he frequently requests diagnosis letters and clear they discussed "only" symptom that he didn't have of borderline personality disorder was self-harm just before his admission here. Reviewed that his outpatient providers may be able to refer for MMPI but I agree he meets many of the criteria but I feel his personality is still developing, etc and focus should be on processing childhood trauma, working on distress tolerance, etc. Reviewed his lifelong hx of hyperhidrosis and how it impacts his life, avoids working out at a gym, going certain places, can be misinterpreted as anxiety when he is presenting, etc. Reviewed that typically have a trial of an oral agent prior to consideration for botox, etc and he should establish with a pcp. Physical Exam Psychiatric Orientation: alert and oriented x 3 Apperance: appropriately dressed and appropriately groomed Eye Contact: good eye contact Motor Behavior: no abnormal motor movements Speech: normal rate/rhythm/volume of speech Affect: euthymic affect Mood: + depressed mood and + anxious mood Thought Process: goal directed thought process Thought Content: reality based without delusions Suicidal Thoughts: denies suicidal thoughts Homicidal Thoughts: denies homicidal thoughts Hallucinations: no auditory hallucinations and no visual hallucinations Cognition: attention grossly intact and language grossly intact Estimated Intelligence: consistent with education level Insight: + limited insight Judgement: + limited judgement Vital Signs (Past 24 Hours) Last Vital Signs Temp 36.4 C L 10/11/21 06:32 Pulse 77 10/11/21 06:33 Resp 16 10/11/21 06:32 BP 119/77 10/11/21 06:33 Pulse Ox 99 10/10/21 11:15 O2 Del Method 10/10/21 11:15 Results & Data ([facility]) Current Inpatient Medications Current Inpatient Medications: Current Inpatient Medications Acetaminophen (Acetaminophen 325 Mg Tab) 650 mg PO Q4H PRN PRN Reason: Headache or Minor Fever Stop: 11/09/21 02:30 Al Hydrox/Mg Hydrox/Simethicone (Aluminum/Magnesium Susp 30 Ml Udc) 30 ml PO Q4H PRN PRN Reason: GI Upset Stop: 11/09/21 02:30 Amphetamine/Dextroamphetamine (Amphetamine Asp/Sulf/Dextramph Er 20 Mg Cap) 30 mg PO Q24H ANDREI Stop: 10/26/21 08:59 Bismuth Subsalicylate (Bismuth Subsalicylate Liqd 236 Ml) 15 ml PO PRN PRN PRN Reason: Loose Stool Stop: 11/09/21 02:30 Glycopyrrolate (Glycopyrrolate 1 Mg Tab) 1 mg PO BID ANDREI Stop: 11/10/21 11:29 Hydroxyzine HCl (Hydroxyzine Hcl 25 Mg Tab) 50 mg PO HSZ PRN PRN Reason: Insomnia Stop: 11/09/21 02:30 Last Admin: 10/10/21 20:33 Dose: 50 mg Hydroxyzine HCl (Hydroxyzine Hcl 25 Mg Tab) 25 mg PO Q4H PRN PRN Reason: Anxiety Stop: 11/09/21 02:30 Magnesium Hydroxide (Magnesium Hydroxide Susp 30 Ml Udc) 30 ml PO DAILY PRN PRN Reason: Constipation Stop: 11/09/21 02:30 Sertraline HCl (Sertraline Hcl 50 Mg Tablet) 25 mg PO QAM ANDREI Stop: 11/10/21 08:59 Last Admin: 10/11/21 08:35 Dose: 25 mg Sodium Chloride (Sodium Chloride 0.65% Na Soln 45 Ml ([place])) 1 - 2 sprays NA PRN PRN PRN Reason: Nasal Dryness/Congestion Stop: 11/09/21 02:30 Mental Health & Subst Abuse Tx Psychiatrist Name of Psychiatrist: Suleman Coley Psychiatrist's Date of Appointment with Psychiatrist: 10/31/21 Time of Appointment with Psychiatrist: 1:50pm Psychiatric Appointment Comment: [address] [place], [place] Therapist Name of Therapist: Iftikhar Matamoros- Marek Soria Therapist's Date of Therapist Appointment: 10/22/21 Therapy Appointment Comment: [phone] [place] [address], [place] Post Discharge Appointments Primary Care Physician Name Of Family Doctor: Yrn Primary Care Provider Appointment Comment: follow up as needed Contact Information Discharge Discharge Address: [address] [place] [address], [place] (1) Depression Active/Remission status: currently active Depression Type: major depressive disorder Major depression episode severity: severe Major depression recurrence: recurrent Psychotic features: without psychotic features Qualified Code(s): F33.2 - Major depressive disorder, recurrent severe without psychotic features
[2021-10-11] MEDS: GLYCOPYRROLATE 1 MG TAB PO SCH ×2 (12:44→20:51)
[2021-10-11] MEDS: hydrOXYzine HCl 25 MG TAB PO PRN (20:27)
[2021-10-12] MEDS: SERTRALINE HCL 50 MG TABLET PO SCH (10:19)
[2021-10-12] MEDS: GLYCOPYRROLATE 1 MG TAB PO SCH ×2 (10:20→20:03)
[2021-10-12] MEDS: DEXTROAMPHETAMINE/AMPHETAMINE ER 10 MG CAP PO SCH (10:50)
[2021-10-12] MEDS: DOCUSATE SODIUM 100 MG CAP PO SCH ×2 (15:02→20:03)
[2021-10-12] MEDS ORDERED: NICOTINE POLACRILEX 2 MG GUM MT PRN (15:36)
--- NOTE | 2021-10-12 15:43 | Psychiatric Progress Note ---
Date of Service October 12, 2021 Impression / Recommendations Impression Braulio is a 21 yo male with a history of issues with "self regulation" seemingly due to reactivity in relationships, perhaps in part to ADHD, but hx of anxiety worsening recently in the context of depression. He seems rather invested in a diagnosis of borderline personality disorder. Reviewed that given his age, etc would likely defer diagnosis as not a life long pattern and hx of complex trauma but certainly a diagnostic consideration. 10/12/21: Reviewed interim progress per Dr. Nunez. Given suicide attempt, and note, and sudden flight into health remains concern that he could be minimizing some of his symptoms due to anxiety of being in the hospital and need for ongoing inpatient level of care given high acute risk and ongoing safety planning and insight-oriented work. Reviewed ways to help him feel more comfortable here and motivational interviewing regarding his alcohol and cannabis use. He plans to avoid or reduce alcohol use but feels cannabis is helpful. Tolerating initiation of sertraline-agrees to further titration to get to effective dose. Adding trazodone to help with sleep, reviewed risks/benefits/side effects including sedation, hypotension, priapism. 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 Ongoing focus on safety planning and coping skills. He declines a family/support meeting. 10/11/21: [address] but he remains agreeable to ongoing inpatient care at this time. Will resume Adderall XR 30 mg tomorrow am. Continue Zoloft 25 mg for now given recent OD of SSRI. Risks/benefits/alternatives reviewed re: glycopyrrolate and will start 1 mg BID today with help from social work to establish with PCP for ongoing care re: this issue. 10/10/21: The patient was admitted to the [facility] ([facility] mental health unit) on q15 min checks (behavioral with suicide precautions) for safety. The patient will participate in group, recreational, and milieu therapies and will be offered additional individual and family sessions as clinically appropriate. Risks/benefits/alternatives reviewed re: current medications including but not limited to cardiovascular risks of stimulant restart and FDA black box warnings re: suicidal thoughts with SSRI. 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 He is agreeable to treatment and remaining hospitalized to start Zoloft as was plan of outpatient provider. Care discussed with outpatient prescriber. Inventory Assets Strengths: bright, well spoken Needs: coping skills, improved impulse control Suicide Risk Level Suicide Risk Level: Moderate (q15 min suicide checks) (currently denies SI, states attempt was impulsive, contracts to go to staff) Suicide Risk Level Comments: Suicide attempt prior to admission and depression but denies current SI and feels safe and agrees to alert staff if he feels unable to remain safe Risk Factors Assessment Male: Yes Do You Have Access To A Gun?: No Mental Health Diagnoses: Yes Previous Attempt: No Family History of Suicide: No Previous Psychiatric Hospitalization: Yes Protective Factors Assessment Employed: No Stable Relationships: No Supportive Family: No Interval History Identifying Information BRAULIO MESSINA is a 21-year-old M, [employer] student from [place], and was admitted on 10/10/21 02:31 on a 201 voluntary commitment s/p suicide attempt. Chief Complaint "It's really hard for me to be here". Review of Systems Sleep Information Total Hours of Sleep: 8.5 Meal Information Percent Meal Consumed - Breakfast: 85 Percent Meal Consumed - Lunch: 80 Percent Meal Consumed - Dinner: 100 Subjective Subjective Patient was seen & assessed and interval progress reviewed with treatment team nursing and social work. He expressing ongoing anxiety, particularly anticipatory about managing with emails and work that has accumulated since his attempt. He feels his mood has been improving and he continues to feel his attempt was impulsive. Reviewed that he feels this won't happen again as he's developed more coping skills here. Working on safety plan. Very focused on his goal of discharge as soon as possible. Physical Exam Psychiatric Orientation: alert and oriented x 3 Apperance: appropriately dressed and appropriately groomed Eye Contact: good eye contact Motor Behavior: no abnormal motor movements Speech: normal rate/rhythm/volume of speech Affect: + depressed affect Mood: + depressed mood and + anxious mood Thought Process: goal directed thought process Thought Content: reality based without delusions Suicidal Thoughts: denies suicidal thoughts Homicidal Thoughts: denies homicidal thoughts Hallucinations: no auditory hallucinations and no visual hallucinations Cognition: attention grossly intact and language grossly intact Estimated Intelligence: consistent with education level Insight: + limited insight Judgement: + limited judgement Vital Signs (Past 24 Hours) Last Vital Signs Temp 36.4 C L 10/12/21 06:45 Pulse 97 H 10/12/21 06:46 Resp 18 10/12/21 06:45 BP 132/90 10/12/21 06:46 Pulse Ox 99 10/10/21 11:15 O2 Del Method 10/10/21 11:15 Results & Data ([facility]) Current Inpatient Medications Current Inpatient Medications: Current Inpatient Medications Acetaminophen (Acetaminophen 325 Mg Tab) 650 mg PO Q4H PRN PRN Reason: Headache or Minor Fever Stop: 11/09/21 02:30 Al Hydrox/Mg Hydrox/Simethicone (Aluminum/Magnesium Susp 30 Ml Udc) 30 ml PO Q4H PRN PRN Reason: GI Upset Stop: 11/09/21 02:30 Amphetamine/Dextroamphetamine (Dextroamphetamine/Amphetamine Er 10 Mg Cap) 30 mg PO Q24H ANDREI Stop: 10/26/21 08:59 Last Admin: 10/12/21 10:50 Dose: 30 mg Bismuth Subsalicylate (Bismuth Subsalicylate Liqd 236 Ml) 15 ml PO PRN PRN PRN Reason: Loose Stool Stop: 11/09/21 02:30 Docusate Sodium (Docusate Sodium 100 Mg Cap) 100 mg PO BID ANDREI Stop: 11/11/21 14:29 Last Admin: 10/12/21 15:02 Dose: 100 mg Glycopyrrolate (Glycopyrrolate 1 Mg Tab) 1 mg PO BID ANDREI Stop: 11/10/21 11:29 Last Admin: 10/12/21 10:20 Dose: 1 mg Hydroxyzine HCl (Hydroxyzine Hcl 25 Mg Tab) 50 mg PO HSZ PRN PRN Reason: Insomnia Stop: 11/09/21 02:30 Last Admin: 10/11/21 20:27 Dose: 50 mg Hydroxyzine HCl (Hydroxyzine Hcl 25 Mg Tab) 25 mg PO Q4H PRN PRN Reason: Anxiety Stop: 11/09/21 02:30 Magnesium Hydroxide (Magnesium Hydroxide Susp 30 Ml Udc) 30 ml PO DAILY PRN PRN Reason: Constipation Stop: 11/09/21 02:30 Last Admin: 10/11/21 13:29 Dose: 30 ml Nicotine Polacrilex (Nicotine Polacrilex 2 Mg Gum) 1 piece MT PRN PRN PRN Reason: nicotine cravings Stop: 11/11/21 15:35 Sertraline HCl (Sertraline Hcl 50 Mg Tablet) 50 mg PO QAM ANDREI Stop: 11/12/21 08:59 Sodium Chloride (Sodium Chloride 0.65% Na Soln 45 Ml ([place])) 1 - 2 sprays NA PRN PRN PRN Reason: Nasal Dryness/Congestion Stop: 11/09/21 02:30 Trazodone HCl (Trazodone Hcl 50 Mg Tab) 50 mg PO DAILY@1999 ANDREI Stop: 11/11/21 19:59 Mental Health & Subst Abuse Tx Psychiatrist Name of Psychiatrist: Suleman Coley Psychiatrist's Date of Appointment with Psychiatrist: 10/31/21 Time of Appointment with Psychiatrist: 1:50pm Psychiatric Appointment Comment: [address] [place], [place] Therapist Name of Therapist: Iftikhar Matamoros- Marek Soria Therapist's Date of Therapist Appointment: 10/21/21 Therapy Appointment Comment: [email or web address] [place], [place] Post Discharge Appointments Primary Care Physician Name Of Family Doctor: [facility] Primary Care Provider Appointment Comment: follow up as needed Contact Information Discharge Discharge Address: [address] [place], [place] [address] (1) Depression Active/Remission status: currently active Depression Type: major depressive disorder Major depression episode severity: severe Major depression recurrence: recurrent Psychotic features: without psychotic features Qualified Code(s): F33.2 - Major depressive disorder, recurrent severe without psychotic features
[2021-10-12] MEDS ORDERED: traZODone HCL 50 MG TAB PO SCH (20:00)
[2021-10-13 08:02] LABS: Amphetamine Urine, Confirm 8950 ng/mL (<250); Marijuana Quant, GCMS Urine 54 ng/mL (<5); Methamphetamine, Ur Confirm NEGATIVE ng/mL (<250)
[2021-10-13] MEDS ORDERED: SERTRALINE HCL 50 MG TABLET PO SCH (09:00)
--- NOTE | 2021-10-13 09:15 | Discharge Summary ---
Date of Service October 13, 2021 History of Present Illness Braulio reports that he is doing well in many areas but struggles with self- regulation, particularly with regards to all or nothing thinking and relationships. He reports feeling like he should "go to the [facility]" on 10/05/21 but deciding to wait and had a plan to cross taper his medication from Paxil to Zoloft with his outpatient prescriber Sunita Gutierrez PA-C at [facility]. He states he impulsively took approximately 20 of his Paxil 30 mg with some Nyquil and had written a suicide note (though maintains impulsive). He chronically doesn't feel like he connects with people or is "super social" but denies eliza. He has been going to the bars less recently which has been helpful for his mood and he also feels that delta 8 has been helpful for anxiety (reviewed risks, particularly in combination with psychiatric medications). He notes >2 week issues ("maybe since May") with appetite and DFA, decreased energy, anhedonia, low motivation (though semester ended well). He feels that Adderall has only positive impact on his mood as if doesn't take it will stay in bed for 2-3 days at a time. 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 He is active in student government on campus. He identifies many friendships but is not in a relationship currently and doesn't seem particularly close with his 4 roommates. He is estranged from his family, having lived with grandparents or friends families since middle school. Physical Exam Vital Signs (Past 24 Hours) Last Vital Signs Temp 36.4 C L 10/13/21 06:51 Pulse 89 10/13/21 06:51 Resp 18 10/13/21 06:51 BP 112/77 10/13/21 06:51 Pulse Ox 99 10/10/21 11:15 O2 Del Method 10/10/21 11:15 See admission H&P and DOD summary. Principal Diagnosis Major Depressive Disorder with anxious distress Psychiatric Data See daily stay summary. In short, patient was engaged with the social/therapeutic milieu of the unit, safety was maintained and the patient was cooperative with care. Medication changes included discontinuation of Paxil and initiation of sertraline and trazodone at bedtime as needed and they tolerated this well. Glycopyrrolate was added for hyperhidrosis. He put in a 72 hour notice on 10/10/21 and he was discharged the morning of 10/13/21 before it on 10/13/2021 at 12:51pm as he was not felt to meet 302 criteria given improvement in mood and no SI and no signs of acute eliza nor psychosis nor inability to care for self. He declined having a family or support session. A safety plan was completed prior to discharge. His mood improved with the medication changes. He actively and insightfully participated in safety planning and in discussions about ways to seek support and recognizing warning signs and utilizing coping skills. Reviewed mobile apps that could be used for additional ways to have their safety plan and contacts easily available should thoughts of SI re-emerge in the future. Reviewed importance of seeking emergency care should SI intensify, worsen or should they feel unsafe in the future which they agree to do. On the day of discharge he stated his mood was "good", he felt as though "my emotions are much more regulated" and remained future-oriented including spending time with friends, catching up on emails, beginning his human resource internship later in the week, and engaging in aftercare appointments for psychiatry and therapy. Day of Discharge Assessment Today the patient voices readiness for discharge. They note improvement in mood and anxiety. They deny thoughts of harm to self or others. Thoughts are organized and they are clinically improved from admission. There is no evidence of psychosis. They improved in the hospital with support and medication adjustments. They agree to take medications as prescribed and keep follow-up appointments. At the time of the discharge they are deemed to be stable and appropriate for outpatient level of care. They are not deemed to be at imminent risk of harm to self or others. They are aware of emergency and crisis services. Knows to call 911 or go to nearest emergency care center if in a crisis which cannot be handled as an outpatient. Transition of Care Transition Of Care Record: was reviewed with the patient Advance Directives Advance Directives Information Provided: Yes Advance Directives: No Mental Health Advance Directive: No Advance Directives on File: No Living Will: No Power of Manager Golf: No Advance Directives Reason:: Declines as Mental Health Visit. Suicide Risk Level Suicide Risk Level Comments: Acute risk is low given improvement in mood and denial of SI, lack of access to lethal means, plan to avoid alcohol use, improvement in sleep, and hopefulness. Chronic risk is moderate given periods of impulsivity ,prior attempt, emotional reactivity, co-morbid diagnoses, prior psychiatric hospitalization, limited social support, mood disorder, childhood adversity, but also with protective factors including good rapport with outpatient providers, engagement in academic pursuits and current student. Counseled on ways to reduce acute and chronic risk including engaging with outpatient providers, using safety plan if needed, uti lizing supports, taking medication, and using coping skills. Modifiable risk factors of SI and depression and anxiety were addressed during hospitalization through development of new coping skills, safety planning, and medication adjustments. Risk Factors Assessment Male: Yes Do You Have Access To A Gun?: No Mental Health Diagnoses: Yes Previous Attempt: No Family History of Suicide: No Previous Psychiatric Hospitalization: Yes Hopelessness: No Protective Factors Assessment Employed: Yes (human resource internship and student ) Stable Relationships: Yes Supportive Family: No Good Rapport with Provider: Yes Tobacco Cessation at Discharge Tobacco Cessation Medication Prescribed at Discharge: Offered & Pt Refused Discharge Data Lab Results 10/09/21 10/09/21 10/09/21 19:42 19:42 19:42 WBC 8.66 RBC 6.01 Hgb 15.8 Hct 47.4 MCV 78.9 L MCH 26.3 MCHC 33.3 RDW Std Deviation 36.4 RDW Coeff of Cheikh 12.8 Plt Count 280 MPV 9.0 L Immature Gran % (Auto) 0.5 Neut % (Auto) 70.4 Lymph % (Auto) 21.0 [place] % (Auto) 7.5 Eos % (Auto) 0.3 Baso % (Auto) 0.3 Neut # (Auto) 6.09 Lymph # (Auto) 1.82 [place] # (Auto) 0.65 Eos # (Auto) 0.03 Baso # (Auto) 0.03 Immature Gran # (Auto) 0.04 H Sodium 135 L Potassium 3.7 Chloride 101 Carbon Dioxide 24 Anion Gap 10 BUN 15 Creatinine 1.02 Est Cr Clr Drug Dosing 102.7 Est GFR ( Amer) 121.2 Est GFR (Non-Af Amer) 104.6 BUN/Creatinine Ratio 14.7 Glucose 133 H Calcium 9.5 Total Bilirubin 0.3 AST 19 ALT 16 Alkaline Phosphatase 66 Total Protein 8.0 Albumin 4.9 Globulin 3.1 Albumin/Globulin Ratio 1.6 TSH 3.247 Urine Color Urine Appearance Urine pH Ur Specific [place] Urine Protein Urine Glucose (UA) Urine Ketones Urine Blood Urine Nitrite Urine Bilirubin Urine Urobilinogen Ur Leukocyte Esterase Urine WBC (Auto) Urine RBC (Auto) U Hyaline Cast (Auto) U Epithel Cells (Auto) Urine Bacteria (Auto) Ur Renal Epithelial Cell Urine Crystals Calcium Oxalate Crystal Uric Acid Crystals Triple Phos Crystals Other Crystals Amorphous Sediment Granular Casts Waxy Casts RBC Casts WBC Casts Other Casts Urine Mucus Urine Other Urine Trichomonas Urine Yeast Urine Sperm Ur Oval Fat Bodies Salicylates Urine Opiates Screen Ur Methadone, Qual Acetaminophen Urine Barbiturates Ur Phencyclidine (PCP) U Amphetamines Confirm U Amphetamin/Meth Scrn U Methamphetamin Confrm MDMA (Ecstasy) Screen U Benzodiazepines Scrn Ur Cocaine Metabolite U Marijuana (THC) Screen U Marijuana THC Carboxy Drug Screen Comment Ethyl Alcohol mg/dL SARS-CoV-2, RNA, NAAT 10/09/21 10/09/21 10/09/21 19:42 19:42 19:42 WBC RBC Hgb Hct MCV MCH MCHC RDW Std Deviation RDW Coeff of Cheikh Plt Count MPV Immature Gran % (Auto) Neut % (Auto) Lymph % (Auto) [place] % (Auto) Eos % (Auto) Baso % (Auto) Neut # (Auto) Lymph # (Auto) [place] # (Auto) Eos # (Auto) Baso # (Auto) Immature Gran # (Auto) Sodium Potassium Chloride Carbon Dioxide Anion Gap BUN Creatinine Est Cr Clr Drug Dosing Est GFR ( Amer) Est GFR (Non-Af Amer) BUN/Creatinine Ratio Glucose Calcium Total Bilirubin AST ALT Alkaline Phosphatase Total Protein Albumin Globulin Albumin/Globulin Ratio TSH Urine Color Urine Appearance Urine pH Ur Specific [place] Urine Protein Urine Glucose (UA) Urine Ketones Urine Blood Urine Nitrite Urine Bilirubin Urine Urobilinogen Ur Leukocyte Esterase Urine WBC (Auto) Urine RBC (Auto) U Hyaline Cast (Auto) U Epithel Cells (Auto) Urine Bacteria (Auto) Ur Renal Epithelial Cell Urine Crystals Calcium Oxalate Crystal Uric Acid Crystals Triple Phos Crystals Other Crystals Amorphous Sediment Granular Casts Waxy Casts RBC Casts WBC Casts Other Casts Urine Mucus Urine Other Urine Trichomonas Urine Yeast Urine Sperm Ur Oval Fat Bodies Salicylates < 3.0 L Urine Opiates Screen Ur Methadone, Qual Acetaminophen 28 Urine Barbiturates Ur Phencyclidine (PCP) U Amphetamines Confirm U Amphetamin/Meth Scrn U Methamphetamin Confrm MDMA (Ecstasy) Screen U Benzodiazepines Scrn Ur Cocaine Metabolite U Marijuana (THC) Screen U Marijuana THC Carboxy Drug Screen Comment Ethyl Alcohol mg/dL < 10.0 SARS-CoV-2, RNA, NAAT NEGATIVE 10/09/21 10/09/21 10/09/21 22:08 Unknown Unknown WBC RBC Hgb Hct MCV MCH MCHC RDW Std Deviation RDW Coeff of Cheikh Plt Count MPV Immature Gran % (Auto) Neut % (Auto) Lymph % (Auto) [place] % (Auto) Eos % (Auto) Baso % (Auto) Neut # (Auto) Lymph # (Auto) [place] # (Auto) Eos # (Auto) Baso # (Auto) Immature Gran # (Auto) Sodium Potassium Chloride Carbon Dioxide Anion Gap BUN Creatinine Est Cr Clr Drug Dosing Est GFR ( Amer) Est GFR (Non-Af Amer) BUN/Creatinine Ratio Glucose Calcium Total Bilirubin AST ALT Alkaline Phosphatase Total Protein Albumin Globulin Albumin/Globulin Ratio TSH Urine Color Cancelled Urine Appearance Cancelled Urine pH Cancelled Ur Specific [place] Cancelled Urine Protein Cancelled Urine Glucose (UA) Cancelled Urine Ketones Cancelled Urine Blood Cancelled Urine Nitrite Cancelled Urine Bilirubin Cancelled Urine Urobilinogen Cancelled Ur Leukocyte Esterase Cancelled Urine WBC (Auto) Cancelled Urine RBC (Auto) Cancelled U Hyaline Cast (Auto) Cancelled U Epithel Cells (Auto) Cancelled Urine Bacteria (Auto) Cancelled Ur Renal Epithelial Cell Cancelled Urine Crystals Cancelled Calcium Oxalate Crystal Cancelled Uric Acid Crystals Cancelled Triple Phos Crystals Cancelled Other Crystals Cancelled Amorphous Sediment Cancelled Granular Casts Cancelled Waxy Casts Cancelled RBC Casts Cancelled WBC Casts Cancelled Other Casts Cancelled Urine Mucus Cancelled Urine Other Cancelled Urine Trichomonas Cancelled Urine Yeast Cancelled Urine Sperm Cancelled Ur Oval Fat Bodies Cancelled Salicylates Urine Opiates Screen Neg Ur Methadone, Qual Neg Acetaminophen 51 H Urine Barbiturates Neg Ur Phencyclidine (PCP) Neg U Amphetamines Confirm U Amphetamin/Meth Scrn Pos H U Methamphetamin Confrm MDMA (Ecstasy) Screen Neg U Benzodiazepines Scrn Neg Ur Cocaine Metabolite Neg U Marijuana (THC) Screen Pos H U Marijuana THC Carboxy Drug Screen Comment Ethyl Alcohol mg/dL SARS-CoV-2, RNA, NAAT 10/09/21 10/09/21 Unknown Unknown WBC RBC Hgb Hct MCV MCH MCHC RDW Std Deviation RDW Coeff of Cheikh Plt Count MPV Immature Gran % (Auto) Neut % (Auto) Lymph % (Auto) [place] % (Auto) Eos % (Auto) Baso % (Auto) Neut # (Auto) Lymph # (Auto) [place] # (Auto) Eos # (Auto) Baso # (Auto) Immature Gran # (Auto) Sodium Potassium Chloride Carbon Dioxide Anion Gap BUN Creatinine Est Cr Clr Drug Dosing Est GFR ( Amer) Est GFR (Non-Af Amer) BUN/Creatinine Ratio Glucose Calcium Total Bilirubin AST ALT Alkaline Phosphatase Total Protein Albumin Globulin Albumin/Globulin Ratio TSH Urine Color Yellow Urine Appearance Clear Urine pH 6.5 Ur Specific [place] 1.032 H Urine Protein Negative Urine Glucose (UA) Negative Urine Ketones Trace H Urine Blood Negative Urine Nitrite Negative Urine Bilirubin Negative Urine Urobilinogen Negative Ur Leukocyte Esterase Negative Urine WBC (Auto) Urine RBC (Auto) U Hyaline Cast (Auto) U Epithel Cells (Auto) Urine Bacteria (Auto) Ur Renal Epithelial Cell Urine Crystals Calcium Oxalate Crystal Uric Acid Crystals Triple Phos Crystals Other Crystals Amorphous Sediment Granular Casts Waxy Casts RBC Casts WBC Casts Other Casts Urine Mucus Urine Other Urine Trichomonas Urine Yeast Urine Sperm Ur Oval Fat Bodies Salicylates Urine Opiates Screen Ur Methadone, Qual Acetaminophen Urine Barbiturates Ur Phencyclidine (PCP) U Amphetamines Confirm 8950 H U Amphetamin/Meth Scrn U Methamphetamin Confrm NEGATIVE MDMA (Ecstasy) Screen U Benzodiazepines Scrn Ur Cocaine Metabolite U Marijuana (THC) Screen U Marijuana THC Carboxy 54 H Drug Screen Comment SEE NOTE Ethyl Alcohol mg/dL SARS-CoV-2, RNA, NAAT Hospital Course (1) Suicide attempt by drug overdose: (2) MDD (major depressive disorder), recurrent episode, moderate: (3) Depression: (4) 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 Motivational interviewing regarding substance use. 10/12/21: Increase sertraline to 50mg qAM, trazodone 50mg qhs prn, continue with other medications and tx plan. Ongoing focus on safety planning and coping skills. He declines a family/support meeting as no close family and prefers not to do this with his roommates. 10/11/21: [address] but he remains agreeable to ongoing inpatient care at this time. Will resume Adderall XR 30 mg tomorrow am. Continue Zoloft 25 mg for now given recent OD of SSRI. Risks/benefits/alternatives reviewed re: glycopyrrolate and will start 1 mg BID today with help from social work to establish with PCP for ongoing care re: this issue. 10/10/21: The patient was admitted to the [facility] ([facility] mental health unit) on q15 min checks (behavioral with suicide precautions) for safety. The patient will participate in group, recreational, and milieu therapies and will be offered additional individual and family sessions as clinically appropriate. Risks/benefits/alternatives reviewed re: current medications including but not limited to cardiovascular risks of stimulant restart and FDA black box warnings re: suicidal thoughts with SSRI. 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 He is agreeable to treatment and remaining hospitalized to start Zoloft as was plan of outpatient provider. Care discussed with outpatient prescriber. Mental Health & Subst Abuse Tx Psychiatrist Name of Psychiatrist: Suleman Coley Psychiatrist's Date of Appointment with Psychiatrist: 10/31/21 Time of Appointment with Psychiatrist: 1:50pm Psychiatric Appointment Comment: [address] [place], [place] Therapist Name of Therapist: Iftikhar Matamoros- Marek Soria Therapist's Date of Therapist Appointment: 10/21/21 Therapy Appointment Comment: [address] [place], [place] Post Discharge Appointments Primary Care Physician Name Of Family Doctor: [email or web address] Primary Care Provider Appointment Comment: follow up as needed Smoking Cessation Counseling Tobacco Cessation Medication Prescribed at Discharge: Offered & Pt Refused Contact Information Discharge Discharge Address: [address] [place] [address] Discharge Plan Discharge Items Patient Disposition: Home - Self-Care Reason For Visit: SI Discharge Diagnosis: Major Depressive Disorder with anxious features Activity: Resume your previous activity Non-emergency contact: Primary Care Provider, Psychiatrist and Therapist Call non-emergency contact if: you have any medication questions and your symptoms worsen Follow-up/Referrals: [place] [Primary Care Provider] - Diet: Regular Addtl Attending Provider Instructions: Optional Mobile Apps we discussed: -Suicide safety plan -Virtual Hope Box SPECIAL CARE INSTRUCTIONS: 1. Follow through with your scheduled aftercare appointments. If unable to keep an appointment, please call to reschedule. 2. Take your medication only as prescribed. Medication should not be changed or stopped without the approval of your doctor. In the event of worsening symptoms or concerns about side effects, contact your doctor immediately. 3. Utilize new healthy coping skills, anger management skills, and stress management skills learned during your hospitalization. Journal feelings and process them with a support person. Identify stressors or situations that may result in relapse, deterioration or inappropriate behaviors and develop a plan to deal with those issues. 4. If your coping skills are ineffective and you are in crisis, contact your outpatient providers for direction. If unable to reach your providers, please call the [facility] CRISIS LINE AT , go to the [facility] walk-in center at [address], [address], [place], or go to the closest Emergency Room. 5. Avoid alcohol and un-prescribed drugs. 6. You have been provided with the Mental Health Advance Directives Pamphlet for your review. 7. Your condition is stable for discharge to outpatient level of care, but recovery is an ongoing process. Ifthoughts to harm yourself or others return, follow the safety plan developed during your stay. Planning for a safe return home includes securing weapons. Our treatment team recommends weaponsbe removed from the home until your outpatient provider reassesses your progress. In rare cases where the items themselvescannot be removed, guns and ammunitionshould be secured separatelyand keys stored by a reliable personoutside of the home. If you were admitted on an involuntary commitment, the police or other legal authorities may be involved in this process. AFTERCARE APPOINTMENTS: * Please call your insurance company prior to your scheduled appointment to confirm your aftercare providers are covered. Take your insurance information to your appointments. WHO TO CALL AND WHEN: Medical Emergencies: For questions or emergencies related to your hospital stay, please contact the Inpatient Behavioral Health Unit at [phone]. A contract management specialist is on-call 13/10 for the Behavioral Health Unit for em ergencies At any time you feel your situation is an emergency, you may also call 911 immediately. Pending Studies at Discharge: No Stand-Alone Forms: [facility], Smoking Cessation Medications and DC Order Prescriptions: New glycopyrrolate 1 mg Tablet 1 mg PO BID 30 Days Qty: 60 0RF trazodone 50 mg Tablet 50 mg PO HS PRN (Reason: Insomnia) 30 Days Qty: 30 0RF sertraline 50 mg Tablet 50 mg PO QAM 30 Days Qty: 30 0RF Continued dextroamphetamine-amphetamine 30 mg capsule,extended release 24hr 30 mg PO DAILY dextroamphetamine-amphetamine 10 mg tablet 10 mg PO .AFTERNOON PRN (Reason: innattention) Changed hydroxyzine HCl 10 mg Tablet 10 mg PO DAILY PRN (Reason: Anxiety) 30 Days Qty: 30 0RF Discontinued paroxetine HCl 10 mg tablet 10 mg PO DAILY Rx Instructions: 10/08- take 10mg 1 tab PO for one week then discontinue sertraline 100 mg Tablet 100 mg PO DAILY Rx Instructions: 10/08- take 1/2 tab for one week while titrating Discharge Orders: Discharge Order (Routine); Ordered 10/13/21 Ordered By: Flores Campbell Admission Data Admit Date/Time: 10/10/21 02:31 Attending Provider: Grisel Nunez Admit Provider: Grisel Nunez Primary Care Provider: [place] Other Interventions: Discharge Summary Assessment (RN) Last Done: 10/13/21 10:19 Coding Level of Care Code 06756 D/C day mgmt > 30 min Diagnoses Suicide attempt by drug overdose T50.902A MDD (major depressive disorder), recurrent episode, moderate F33.1 Depression F33.2 Active/Remission status: currently active Depression Type: major depressive disorder Major depression episode severity: severe Major depression recurrence: recurrent Psychotic features: without psychotic features Attention deficit disorder of adult with hyperactivity F90.9 Hyperhidrosis R61 Time Spent (min) 45
[2021-10-13] MEDS: DOCUSATE SODIUM 100 MG CAP PO SCH (09:20)
[2021-10-13] MEDS: DEXTROAMPHETAMINE/AMPHETAMINE ER 10 MG CAP PO SCH (09:20)
[2021-10-13] MEDS: GLYCOPYRROLATE 1 MG TAB PO SCH (09:20)
== END 2021-10-13 10:50 | disposition home or self-care (01) | DRG 885 ==
LOC: ED 19:25 → 3S 10-10 02:31